=== PATIENT | female | born 1990 | race Caucasian/White ===

== ENCOUNTER 2018-05-20 19:55 | Emergency (ER) | payer SELFPAY ==
--- NOTE | 2018-05-20 22:07 | ER Document Report ---
ED General - General Chief Complaint: Chest Pain Stated Complaint: CHEST PAIN,SHORTNESS OF BREATH Time Seen by Provider: 05/20/18 22:06 Notes: Patient is a 27-year-old female presents with complaint of pain in her chest and into her back whenever she takes a deep breath. Also worse when she coughs. Patient says is been gradually worsening over last 36 hours. She is a smoker. She denies any leg pain or leg swelling. No upper extremity pain or swelling. No history of DVT or PE. She does have an IUD. TRAVEL OUTSIDE OF THE [place] IN LAST 30 DAYS: No - Related Data Allergies/Adverse Reactions: No Known Allergies Allergy (Verified 06/07/12 10:08) Past Medical History - Social History Smoking Status: Current Every Day Smoker Frequency of alcohol use: None Drug Abuse: None Family History: Reviewed & Not Pertinent Skin Medical History: Reports Hx MRSA Psychiatric Medical History: Reports: Hx Attention Deficit Hyperactivity Disorder, Hx Depression Infectious Medical History: Reports: Hx MRSA - Immunizations Hx Diphtheria, Pertussis, Tetanus Vaccination: Yes - 3-4 years ago Review of Systems - Review of Systems Notes: My Normal Review Basic REVIEW OF SYSTEMS: CONSTITUTIONAL : Denies fever, chills, or sweats. Denies recent illness. EENT: Denies eye, ear, throat, or mouth pain or symptoms. Denies nasal or sinus congestion. CARDIOVASCULAR: Pain with deep breathing and cough. RESPIRATORY: Denies cough, cold, or chest congestion. Denies shortness of breath, difficulty breathing, or wheezing. GASTROINTESTINAL: Denies abdominal pain. Denies nausea, vomiting, or diarrhea. MUSCULOSKELETAL: Denies neck or back pain or joint pain or swelling. SKIN: Denies rash or skin lesions. NEUROLOGICAL: Denies altered mental status or loss of consciousness. Denies headache. Denies weakness or paralysis or loss of use of either side. Denies problems with gait or speech. Denies sensory or motor loss. ALL OTHER SYSTEMS REVIEWED AND NEGATIVE. Physical Exam - Vital signs Vitals: Temp Pulse Resp BP Pulse Ox 98.8 F 96 19 128/77 H 98 05/20/18 20:05 05/20/18 20:05 05/20/18 20:05 05/20/18 20:05 05/20/18 20:05 - Notes Notes: General Appearance: Well nourished, alert, cooperative, no acute distress, no obvious discomfort. Vitals: reviewed, See vital signs table. Head: no swelling or tenderness to the head Eyes: PERRL, EOMI, Conjuctiva clear Mouth: No decreasd moisture Chest wall: No tenderness to palpation of chest wall. Throat: No tonsillar inflammation, No airway obstruction, No lymphadenopathy Neck: Supple, no neck tenderness, No thyromegaly Lungs: No wheezing, No rales, No rhonci, No accessory muscle use, good air exchange bilaterally. Heart: Normal rate, Regular rythm, No murmur, no rub Abdomen: Normal BS, soft, No rigidity, No abdominal tenderness, No guarding, no rebound, no abdominal masses, no organomegaly Extremities: strength 5/5 in all extremities, good pulses in all extremities, no swelling or tenderness in the extremities, no edema. Skin: warm, dry, appropriate color, no rash Neuro: speech clear, oriented x 3, normal affect, responds appropriately to questions. Course - Re-evaluation Re-evalutation: 05/21/18 00:41 I suspect patient's pain is related to pleurisy being that she has pain with deep breathing and coughing and she is a smoker. I did do a d-dimer. I feel she is low risk for PE. However risk factors for PE is that she has an IUD and she smokes. I do not feel that we need to go forward with a CT of the chest as the patient has no tach tachypnea, no tachycardia, no hypoxemia, and she has a negative d-dimer. I did explain the workup to the patient and she is understanding and agreeable to it. I will place her on Toradol. I encouraged her to quit smoking. I informed her to return to the ER immediately if she has worsening pain, difficulty breathing, fevers, or feels that she is worsening in any way. Patient agrees with plan and will be discharged home. Dictation of this chart was performed using voice recognition software; therefore, there may be some unintended grammatical errors. - Vital Signs Vital signs: Temp Pulse Resp BP Pulse Ox 98.8 F 96 20 100/59 L 98 05/20/18 20:05 05/20/18 20:05 05/21/18 00:01 05/21/18 00:01 05/21/18 00:01 - Laboratory Result Diagrams: 05/20/18 21:55 05/20/18 21:55 Laboratory results interpreted by me: 05/20/18 05/20/18 21:55 21:55 Monocytes % 14.4 H Glucose 65 L AST 44 H - EKG Interpretation by Me Additional EKG results interpreted by me: 05/20/18 22:06 EKG is reviewed and interpreted by me. EKG shows sinus rhythm with a rate of [address] segment elevation or depression. No ischemic T wave inversions. MS interval, QRS duration, QT intervals are within normal range. No old EKG available for comparison. Discharge - Discharge Clinical Impression: Chest pain Qualifiers: Chest pain type: pleurodynia Qualified Code(s): R07.81 - Pleurodynia Condition: Good Disposition: HOME, SELF-CARE Additional Instructions: I suspect you have pleurisy. This is inflammation of your lung that causes pain with deep breathing. Please avoid smoking. Your test looking for evidence of a blood clot is negative. This test is very sensitive in ruling out a blood clot but no test is 100% sensitive so we still want you to have a low threshold to return to the ER immediately if you have worsening pain, difficulty breahting, fevers, or are not improved within one week. Do not take other NSAID medicaitons such as Aspirin, Motrin, Ibuprofen, Aleve, or Advil when taking the Toradol. It is okay to take Tylenol. Prescriptions: Ketorolac Tromethamine [Toradol 10 mg Tablet] 10 mg PO Q8HP PRN #14 tablet PRN Reason:
[2018-05-20 22:23] LABS: ABSOLUTE LYMPHOCYTES (AUTO) 1.7 10^3/uL (0.5-4.7); ABSOLUTE MONOCYTES (AUTO) 0.8 10^3/uL (0.1-1.4); ABSOLUTE NEUT (AUTO) 3.1 10^3/uL (1.7-8.2); BASOPHILS % (AUTO) 0.5 % (0-2); EOSINOPHILS % (AUTO) 0.6 % (0-6); HEMATOCRIT 40.1 % (36.0-47.0); HEMOGLOBIN 13.9 g/dL (12.0-15.5); MEAN CORPUSCULAR HEMOGLOBIN 30.3 pg (27.0-33.4); MEAN CORPUSCULAR HGB CONC 34.7 g/dL (32.0-36.0); MEAN CORPUSCULAR VOLUME 87 fl (80-97); MONOCYTES % (AUTO) 14.4 % (3-13); PLATELET COUNT 194 10^3/uL (150-450); RED BLOOD COUNT 4.59 10^6/uL (3.72-5.28); RED CELL DISTRIBUTION WIDTH 13.3 % (11.5-14.0); SEGMENTED NEUTROPHILS % (AUTO) 54.5 % (42-78); TOTAL CELLS COUNTED % (AUTO) 100 %; WHITE BLOOD COUNT 5.8 10^3/uL (4.0-10.5)
[2018-05-20 22:43] LABS: ALANINE AMINOTRANSFERASE 44 U/L (9-52); ALBUMIN 4.5 g/dL (3.5-5.0); ALKALINE PHOSPHATASE 66 U/L (38-126); ANION GAP 10 (5-19); ASPARTATE AMINO TRANSFERASE 44 U/L (14-36); BILIRUBIN,DIRECT 0.2 mg/dL (0.0-0.4); BILIRUBIN,TOTAL 0.3 mg/dL (0.2-1.3); BLOOD UREA NITROGEN 11 mg/dL (7-20); CALCIUM 9.7 mg/dL (8.4-10.2); CARBON DIOXIDE 28 mmol/L (22-30); CHLORIDE 102 mmol/L (98-107); POTASSIUM 3.8 mmol/L (3.6-5.0); SODIUM 140.2 mmol/L (137-145); TOTAL PROTEIN 7.3 g/dL (6.3-8.2)
[2018-05-20 22:45] LABS: GLUCOSE 65 mg/dL (75-110)
--- NOTE | 2018-05-20 23:02 | RADIOLOGY REPORT (SQ) ---
EXAM DESCRIPTION: XR CHEST 1 VIEW COMPLETED DATE/TME: 05/20/2018 22:17 CLINICAL HISTORY: 27 years, Female, chest pain COMPARISON: None. NUMBER OF VIEWS: 1 TECHNIQUE: Portable chest LIMITATIONS: None. FINDINGS: Heart size is normal. Lungs are clear. No pneumothorax IMPRESSION: Negative chest copyright 2011 [employer]- All Rights Reserved
[2018-05-20] MEDS ORDERED: KETOROLAC TROMETHAMINE INJ/PF 30 MG/1 ML SDV IV ONE (23:38)
[2018-05-21 01:14] VITALS: BP 100/76
--- NOTE | 2018-05-21 12:34 | EKG REPORT ---
SEVERITY:- BORDERLINE ECG - SINUS RHYTHM BORDERLINE T ABNORMALITIES, ANTERIOR LEADS : Confirmed by: Marianna Colmenares MD 21-May-2018 12:34:08
== END 2018-05-21 01:00 | disposition home or self-care (01) ==
LOC: ER 19:55
DX: R07.81 Pleurodynia (principal); R06.02 Shortness of breath; M54.9 Dorsalgia, unspecified; R05 Cough; F17.200 Nicotine dependence, unspecified, uncomplicated
CPT/HCPCS: 93005; 99284; 36415; 85025; 80053; 85379; 71045; 93010; J1885